=== PATIENT | male | born 1955 | race Caucasian/White ===

== ENCOUNTER 2016-12-24 16:55 | Emergency (ER) | payer OTHER ==
[~2016-12-24] VITALS: Ht 172.7 cm; Wt 87.0 kg
[~2016-12-24 16:55] MED LIST: ASPI81TA82 PO; FOLI1 PO; OMEP10CA37 PO; RANI150 PO; SERT-129 PO; [UNRECOGNIZED DRUG - CODE]
[2016-12-24 16:57] VITALS: BP 123/69; PULSE 100; RESP 24; TEMP 98.7; O2SAT 96
--- NOTE | 2016-12-24 17:06 | PD ---
Physical Exam Time Seen by Provider: 17:03 Narrative 61yo M c/o pain to tailbone x 2 days after hitting on the side a truck seat while sitting down. Denies bowel or bladder incontinence. Denies neuro deficits. +pain with defecation, otherwise no change. Denies dysuria. Patient seen in triage. VS reviewed. Awaiting bed placement. Data Data Last Documented VS Vital Signs Date Time Temp Pulse Resp B/P Pulse Ox O2 Delivery O2 Flow Rate FiO2 12/24/16 16:57 98.7 100 24 123/69 96 Room Air MDM Supervised Visit with TIFFANY: Vianca Duckworth Dec 24, 2016 17:06
--- NOTE | 2016-12-24 17:20 | PD ---
HPI Chief Complaint: Musculoskeletal Complaint Time Seen by Provider: 17:16 Travel History International Travel<30 days: No Contact w/Intl Traveler<30days: No Traveled to known affect area: No History of Present Illness HPI 61-year-old male presents to the emergency department for evaluation of tailbone pain that began 2 days ago. Patient states that 2 days ago he was climbing into a tall truck and he tried to sit in the seat when he slid and his tailbone hit a metal bar. States he felt a crack at the time this occurred. States he's had severe pain at his tailbone since this occurred. Pain is aggravated with sitting. Denies any alleviating factors. He has tried Tylenol with Codeine without improvement of symptoms. Denies any lower back pain. Denies any numbness or tingling, weakness, saddle anesthesia, bowel or bladder incontinence. States that he had a normal bowel movement yesterday however today was having some difficulty with defecation. States that he sat on the toilet for about an hour before he had a bowel movement. States that the stool was not hard, it was a normal consistency. States that he had pain in his tailbone and in his rectum at the time of defecation. No other complaints. PFSH Past Medical History Hx Anticoagulant Therapy: Yes (ASA) Arthritis: Yes Asthma: Yes (childhood hx) Autoimmune Disease: No Anxiety: Yes Depression: Yes Heart Rhythm Problems: No Cancer: No Cardiac Catheterization: No Cardiovascular Problems: No High Cholesterol: Yes Chest Pain: Yes Congestive Heart Failure: No Cerebrovascular Accident: No Diabetes: No Diverticulitis: Yes Endocrine: Yes Gastrointestinal Disorders: Yes GERD: Yes Genitourinary: Yes Headaches: Yes Hiatal Hernia: No Immune Disorder: No Kidney Stones: Yes Neurologic: Yes Psychiatric: Yes (schizophrenia) Reproductive: No Respiratory: Yes Immunizations Current: Yes Migraines: Yes (post trauma) Myocardial Infarction: Yes Renal Failure: No Seizures: Yes Sleep Apnea: No Thyroid Disease: No Ulcer: No PNEUMOCCOCAL Vaccine (Year): 3 Past Surgical History Abdominal Surgery: Yes (war= stomach, spleen, appen, resection, left kidney removed) Appendectomy: Yes Body Medical Devices: joint replacement, right knee, metal in arm post trauma Cardiac Surgery: No Coronary Artery Bypass Graft: No Ear Surgery: Yes (bilat ear- tubes installed, right ear drum) Endocrine Surgery: Yes (left kidney removed) Eye Surgery: Yes (shrapnel rt eye removed) Genitourinary Surgery: No Gynecologic Surgery: No Neurologic Surgery: Yes (traumatic brain injury) Oral Surgery: Yes (right molar removed) Thoracic Surgery: No Tonsillectomy: Yes Other Surgery: Yes (left kidney removed, spleen,1/2 stomach and intestine) Social History Alcohol Use: No (allergic) Tobacco Use: Yes (8 cigars/DAY) Substance Use: No Allergies-Medications (Allergen,Severity, Reaction): Coded Allergies: Alcohol (Verified Allergy, Severe, swell, 12/24/16) when ingested Common Ragweed (Verified Allergy, Severe, 12/24/16) Reported Meds & Prescriptions Reported Meds & Active Scripts Active Clindamycin (Clindamycin HCl) 300 Mg Cap 300 Mg PO Q6H 10 Days Lortab (Hydrocodone-Acetaminophen) 5-325 Mg Tab 1-2 Tab PO Q6H PRN Reported Invega Trinza Inj (Paliperidone Palmitate) 273 Mg/0.875 Ml Inj Unknown Dose IM Q90D Mirtazapine 15 Mg Tab 15 Mg PO HS Omeprazole 40 Mg Cap 40 Mg PO DAILY Review of Systems Except as stated in HPI: all other systems reviewed are Neg Physical Exam Narrative GENERAL: Well-nourished and well-developed pleasant patient in no acute distress who is nontoxic appearing. SKIN: Warm and dry. HEAD: Normocephalic and atraumatic. EYES: No injection, drainage, or hyphema noted. PERRLA. EOMI. ENT: No nasal drainage noted. Oropharynx is clear. NECK: Supple and the trachea is midline. CARDIOVASCULAR: Regular rate and rhythm. RESPIRATORY: Breath sounds are equal bilaterally with no accessory muscle use, wheezing, rhonchi, or crackles. GASTROINTESTINAL: Abdomen is soft, non-tender, and nondistended. RECTAL EXAM: 2 cm abscess to posterior rectum with erythema and warmth extending along the gluteal cleft. Good rectal tone. No masses. No fistula palpated. Stool is brown. Performed in the presence of Nicki JOHNSON. MUSCULOSKELETAL: No obvious deformities, swelling, cyanosis, or ecchymosis is present throughout the upper and lower extremities. Patient has full range of motion without any signs of neurovascular compromise. BACK: Tenderness to palpation of the sacrum and coccyx. Nontender without any obvious deformities, bony point tenderness, or crepitus noted throughout the thoracic and lumbar vertebrae. NEUROLOGICAL: Awake, alert, and oriented. Normal speech and gait. No saddle anesthesia. Cranial nerves are grossly intact. Data Data Last Documented VS Vital Signs Date Time Temp Pulse Resp B/P Pulse Ox O2 Delivery O2 Flow Rate FiO2 12/24/16 16:57 98.7 100 24 123/69 96 Room Air Orders Sacrum And Coccyx (12/24/16 ) Wound Culture And Gram Stain (12/24/16 17:48) MDM Medical Decision Making Medical Screen Exam Complete: Yes Emergency Medical Condition: Yes Differential Diagnosis Rectal abscess versus coccyx fracture versus pilonidal cyst Narrative Course 61-year-old male presents to the emergency department for evaluation of coccyx pain status post fall onto his tailbone 2 days ago and pain with defecation today. Patient is afebrile, vital signs are stable. He is tachycardic with a heart rate of 100 bpm. On examination he has a rectal abscess noted. No neurologic deficits. My attending physician also evaluated the patient and there is an area of fluctuance noted about mid gluteal cleft where we agree is appropriate to perform I&D, please see procedure narrative. Patient will be placed on clindamycin, instructed to perform sitz baths. He is instructed to follow-up with Dr. Hu on Tuesday morning and if he is unable to follow-up with he is to come back to the emergency department for packing removal and recheck. X-ray of the sacrum and coccyx is negative for fracture. I discussed the case with my attending physician Dr. Lou who is aware of the patients history, physical examination findings, and treatment plan. Procedures Procedure Narrative After the risks and benefits were discussed the following procedure was performed: INCISION AND DRAINAGE OF ABSCESS: The area was prepped and was sterilely draped. A subcutaneous wheal of 1 % Xylocaine with a total number 5 mL was used to anesthetize the area. The area was properly anesthetized. A number 11 scalpel was used to make a 1 -cm incision across the area of the abscess. Purulence was expelled. Cultures were obtained. The abscess was drained an irrigated with normal saline. Quarter inch iodoform packing was placed in the wound. Sterile dressing applied. Patient advised to have packing removed in two days. Diagnosis Primary Impression: Jessica-rectal abscess Referrals: Stew Hu MD 3 days Patient Instructions: General Instructions, Rectal Abscess (ED) Additional Instructions: Perform sitz baths. Take medications as prescribed with food and a full glass of water. Do not take Lortab with alcohol or while driving. Follow-up with colorectal surgeon Dr. Hu on Tuesday. If you are unable to get into his office on Tuesday then please return to the emergency department for packing removal and recheck. Return to the ED for any acute worsening of symptoms. Med/Other Pt SpecificInfo: Prescription(s) given Scripts Clindamycin 300 Mg [id number] Mg PO Q6H 10 Days Ref 0 Prov:Alex Lou MD 12/24/16 Hydrocodone-Acetaminophen (Lortab)5-325 Mg Tab1-2 Tab PO Q6H PRN (PAIN GREATER THAN 6) #20 TAB Ref 0 Prov:Alex Lou MD 12/24/16 Disposition: 01 DISCHARGE HOME Condition: Stable Vianca Temple Dec 24, 2016 17:20
[2016-12-24] MEDS ORDERED: MIRTA15 PO (17:37)
[2016-12-24] MEDS ORDERED: OMEP40CA2 PO (17:37)
[2016-12-24] MEDS ORDERED: PALI1INJ IM (17:37)
[2016-12-24] MEDS ORDERED: CLIN1CAP6 PO (18:04)
[2016-12-24] MEDS ORDERED: HYDR-3533 PO (18:04)
--- NOTE | 2016-12-24 18:22 | PD ---
Physical Exam Date Seen by Provider: Dec 24, 2016 Time Seen by Provider: 18:20 Narrative 61-year-old male came to the emergency room with history of rectal pain. There was also a coincidental history of fall on his buttock sputum is ago and tailbone injury. However this morning when he sat down on the toilet to have a bowel movement he was unable to because of the pain. Patient was seen by the PA and I'm supervising her. I examined the patient along with the PA. He has a 3 cm x 3 cm perirectal abscess at 12 o'clock position mostly between the coccyx and the anus. The plan is to I&D since it is very fluctuant. Patient will have wound culture sent from the discharge that comes out. Once it strained packing will be applied and patient will be discharged on Bactrim and clindamycin. Data Data Last Documented VS Vital Signs Date Time Temp Pulse Resp B/P Pulse Ox O2 Delivery O2 Flow Rate FiO2 12/24/16 16:57 98.7 100 24 123/69 96 Room Air Orders Sacrum And Coccyx (12/24/16 ) Wound Culture And Gram Stain (12/24/16 17:48) MDM Supervised Visit with TIFFANY: Yes Diagnosis Primary Impression: Jessica-rectal abscess Referrals: Stew Hu MD 3 days Patient Instructions: General Instructions, Rectal Abscess (ED) Additional Instruction: Perform sitz baths. Take medications as prescribed with food and a full glass of water. Do not take Lortab with alcohol or while driving. Follow-up with colorectal surgeon Dr. Hu on Tuesday. If you are unable to get into his office on Tuesday then please return to the emergency department for packing removal and recheck. Return to the ED for any acute worsening of symptoms. Scripts Clindamycin 300 Mg [id number] Mg PO Q6H 10 Days Ref 0 Prov:Alex Lou MD 12/24/16 Hydrocodone-Acetaminophen (Lortab)5-325 Mg Tab1-2 Tab PO Q6H PRN (PAIN GREATER THAN 6) #20 TAB Ref 0 Prov:Alex Lou MD 12/24/16 Disposition: 01 DISCHARGE HOME Condition: Stable Alex Lou MD Dec 24, 2016 18:22
--- NOTE | 2016-12-24 18:30 | RADRPT ---
EXAM DATE/TIME: 12/24/2016 17:38 [facility] COMPARISON: No previous studies available for comparison. INDICATIONS : Trauma, fall, fell lower spine MEDICAL HISTORY : Gastroesophageal reflux disease. Myocardial infarction. Hypercholesterolemia. Diverticulitis. H earing loss. Head ENCOUNTER: Initial ACUITY: 2 days PAIN SCORE: 7/10 LOCATION: buttock FINDINGS: Two-view examination of the sacrum and coccyx demonstrates no evidence of fracture or malalignment. The sacral ala and foramina appear symmetric and intact. The coccyx appears unremarkable. The preve rtebral soft tissues are within normal limits. CONCLUSION: Negative for fracture. Rayo Estrella MD FACR on December 24, 2016 at 18:28 Board Certified Radiologist. This report was verified electronically.
== END 2016-12-24 18:40 | disposition home or self-care (01) ==
LOC: NEPK 16:55
DX: K61.1 Rectal abscess (principal); R00.0 Tachycardia, unspecified; E78.00 Pure hypercholesterolemia, unspecified; Z72.0 Tobacco use; Z79.82 Long term (current) use of aspirin; Z87.39 Personal history of other diseases of the musculoskeletal system and connective tissue; Z86.59 Personal history of other mental and behavioral disorders; Z87.19 Personal history of other diseases of the digestive system; Z87.448 Personal history of other diseases of urinary system; Z86.69 Personal history of other diseases of the nervous system and sense organs; Z87.09 Personal history of other diseases of the respiratory system
CPT/HCPCS: 10061; 72220; 86403; 87070; 87205